=== PATIENT | male | born 1985 | race Caucasian/White ===

== ENCOUNTER 2024-09-04 10:45 | Outpatient (CLI) | payer BC, SELFPAY | END 2024-09-04 10:46 | disposition home or self-care (01) | PROVIDERS: PCP Family Medicine; Visit Provider Family Medicine | DX: I10 Essential (primary) hypertension (principal); R59.0 Localized enlarged lymph nodes | CPT/HCPCS: 80048; 80061; 82164; 85025 ==

== ENCOUNTER 2024-09-04 12:19 | Outpatient (CLI) | payer BC, SELFPAY ==
--- NOTE | 2024-09-04 13:00 | CRLHL7_ITS ---
For Patients: As a result of the Century Cures Act, medical imaging exams and procedure reports are released immediately into your electronic medical record. You may view this report before your referring provider. If you have questions, please contact your health care provider. Indication: FOLLOW UP ABNORMAL CXR Technique: CT Chest 75CC ISOVUE 370 Please note that all CT scans at this facility use dose modulation, iterative reconstruction, and/or weight-based dosing when appropriate to reduce radiation dose to as low as reasonably achievable. Comparison: Chest x-ray 08/31/2024 Findings: Visualized thyroid is unremarkable. Mediastinal and bilateral hilar adenopathy is present with lymph nodes measuring up to 2.3 cm. Trace pericardial effusion is present. Mild atherosclerotic changes within the descending thoracic aorta. No aortic dissection. Numerous accessory vascular channels in the left upper hemithorax. Adrenal glands are normal. Normal visualized kidneys. Spleen is enlarged measuring 16.3 cm. Diffuse hepatic steatosis is noted. The gallbladder is absent. No biliary obstruction. Mild fatty atrophy of the pancreas. No enlarged lymph nodes within the upper abdomen. However, there are few sub cm GE junction lymph nodes present along with a sub cm anterior epicardial lymph node. The liver is also enlarged measuring 20.8 cm. Right lower lobe pulmonary nodule measures 10 millimeters, 3/71. Additional bronchovascular pulmonary nodules are present within the right lung base involving the right middle lobe and right lower lobe measuring up to 11 millimeters. Left lower lobe pulmonary nodules are present including a 7.5 millimeter nodule left lower lobe, series 3, image 86. Other smaller nodules are present within the inferior lingula. No pneumothorax. No pulmonary edema. No pleural effusion. No vertebral body compression fracture. No suspicious osseous lesion. Impression: Bulky bilateral hilar and mediastinal adenopathy with associated hepatosplenomegaly and bilateral pulmonary nodules measuring up to 11 millimeters. Findings are suspicious for lymphoma. Sarcoidosis would also be a diagnostic consideration. CT PET and pulmonology consultation is recommended for further evaluation. Please note that all CT scans at this facility use dose modulation, iterative reconstruction, and/or weight-based dosing when appropriate to reduce radiation dose to as low as reasonably achievable. Dictated by Dallin Self MD @ 09/04/2024 1:29:20 PM (Electronically Signed)
== END 2024-09-04 12:20 | disposition home or self-care (01) ==
PROVIDERS: PCP Family Medicine; Visit Provider Family Medicine
DX: R93.89 Abnormal findings on diagnostic imaging of other specified body structures (principal); R16.2 Hepatomegaly with splenomegaly, not elsewhere classified; R91.8 Other nonspecific abnormal finding of lung field; I10 Essential (primary) hypertension; R59.0 Localized enlarged lymph nodes
CPT/HCPCS: 71260; Q9967

== ENCOUNTER 2024-09-19 13:20 | Outpatient (CLI) | payer BC, SELFPAY ==
--- OUTSIDE RECORDS SUMMARY | 2024-09-17 14:43 | XMS_ITS | Encounter Summary ---
Author Organization [facility] Address [address] [place] [address] Care Team Providers Care Internal Salesperson Name Role Phone [facility], [facility] Reason for Referral * Consultation (Routine) - Pending Review Specialty Diagnoses / Procedures Referred By Jazmin t Referred To Contact Pulmonary Disease Diagnoses Localized enlarged lymph nodes Dallin Grigsby MD [facility] [address] [place] [address] Phone: tel: fax: Referral ID Status Reason Start Date Expiration Date V isits Requested Visits Authorized [id number] Pending Review 09/07/2024 09/07/2025 1 1 Question Answer Reason for Referral: General Pulmonary My clinical question is: Hilar adenopathy Patient Scheduling Instructions: [facility] will call you to coordinate your care as prescribed by the provider. If you don t hear from a insurance claims representative within 2 business days, please call . Comments Referral Transcribed by external fax Provider: Dr Dallin Grigsby affiliated with [facility] and clinic at [address] [place] [address]. [place]: No If yes was is the [place] Authorization Number: Phone number: [phone] Please be aware that coverage of these services is subject to the terms and limitations of your health insurance plan. Call member services at your health plan with any benefit or coverage questions. [facility] will call you to coordinate your care as prescribed by the provider. If you don t hear from a insurance claims representative within 2 business days, please call . 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 Gender Identity Not on file Sexual Orientation Not on file documented as of this encounter Plan of Treatment Upcoming Encounters Date Type Department Care Team (Late st Contact Info) Description 09/22/2024 8:30 AM BUTCHER HELPER Hospital Encounter [facility] Respiratory [address] [place] [address] Darryl Johnson MD [address] [place], [place] [address] Scheduled Procedures Name Priority Associated Diagnoses Date/Ti me BRONCHOSCOPY, FLEXIBLE LAD (lymphadenopathy) Scheduled Referrals Name Type Priority Associated Diagnoses Orde r Schedule Adult Pulmonary Medicine Aircraft Skin Burnisher Referral Referral Routine Localized enlarged lymph nodes Expected: 09/07/2024 (Approximate), Expires: 09/07/2025 documented as of this encounter Visit Diagnoses Diagnosis Localized enlarged lymph nodes- Primary Enlargement of lymph nodes documented in this encounter Care Teams Internal Salesperson Relationship Specialty Start Date End Date Clinic, [facility] [place] [address] [place] [address] PCP - General 07/23/19 documented as of this encounter
--- OUTSIDE RECORDS SUMMARY | 2024-09-17 14:43 | XMS_ITS | Encounter Summary ---
Author Organization [facility] Address [address] [place] [address] Care Team Providers Care Correspondence Review Clerk Name Role Phone [facility], [facility] Darryl Johnson MD Unavailable [phone] Dallin Grigsby MD Unavailable [phone] Reason for Visit * Reason Comments Consult * Consultation (Urgent) - Pending Review Specialty Diagnoses / Procedures Referred By Jazmin moe Referred To Contact Medical Oncology Diagnoses Localized enlarged lymph nodes Dallin Grigsby MD [facility] [address] [place] [address] Phone: tel: fax: Referral ID Status Reason Start Date Expiration Date V isits Requested Visits Authorized [id number] Pending Review 09/11/2024 09/11/2025 1 1 Encounter Details Date Type Department Care Team (Late st Contact Info) Description 09/15/2024 4:40 PM TIE MAN Virtual Visit [facility] [address] [place] [address] Darryl Johnson MD [address] [place] [address] LAD (lymphadenopathy) (Primary Dx) Social History Tobacco Use Types Packs/Day Years Used Date Smoking Tobacco: Never Smokeless Tobacco: Never Tobacco Cessation:Counseling Given: Not Answered Sex and Gender Information Value Date Recorded Sex Assigned at Not on file Legal Sex Male 7:53 PM TIE MAN Gender Identity Not on file Sexual Orientation Not on file documented as of this encounter Progress Notes * Darryl Johnson MD - 09/15/2024 4:40 PM CST Images from the original note were not included. Virtual Visit Details Type of service: Video Visit See note LUNG NODULE & INTERVENTIONAL PULMONARY CLINIC [facility] [place], [facility], [facility] [address] [address] Patient: Jackson Bingham, Age [age] year old, Date of 1985, Date of Visit: 09/15/2024 Referring Provider Dallin Grigsby Reason for Consultation: Mediastinal/Hilar Lymphadenopathy The patient has been notified of following: This video visit will be conducted via a call between you and your physician/provider. We have found that certain health care needs can be provided without the need for an in-person physical exam. This service lets us provide the care you need with a video conversation. If a prescription is necessary we can send it directly to your pharmacy. If lab work is needed we can place an order for that and you can then stop by our lab to have the test done at a later time. Video visits are billed at different rates depending on your insurance coverage. Please reach out to your insurance provider with any questions. If during the course of the call the physician/provider feels a video visit is not appropriate, youwill not be charged for this service. Patient has given verbal consent for Video visit? Yes How would you like to obtain your AVS? Please refer to rooming staff note Patient would like the video invitation sent by: Please refer to rooming staff note Will anyone else be joining your video visit? Please refer to rooming staff note Video-Visit Details Type of service: Video Visit Video Start Time: 422 Video End Time: 459 Provider Name: Darryl Johnson MD, A Originating Location (pt. Location): Home Provider Location: Off campus Distant Location (provider location): Home/Clinic Platform used for Video Visit: AmWell/Doximity Assessment and Plan: 1. New multiple hilar/mediastinal LAD. Given the characteristics on current/previous imaging and risk factors; I would classify this to be Intermediate (6-65%) risk for cancer. Given hepatosplenomegaly there is concern for a lymphoproliferative process. Plan EBUS-TBNA in OR and sending flow cytometry. He will also be getting a PET scan 09/17/24 at 330 at [facility]. Billing: I spent a total of 45min spent on date of encounter which includes prep time, visit with the patient and post visit work including documentation and nursing communication Darryl Johnson MD, MHA fixture builder Section of Interventional Pulmonology Division of Pulmonary, Allergy, Critical Care and Sleep Medicine [facility] Pager: [phone] Office: [phone] Email: [email or web address] Brenda Rowe RN Interventional Pulmonary Logistics Lead Office: [phone] Email: [email or web address] Jhon Cui Interventional Pulmonary Division Sergeant Office: [phone] Email: [email or web address] History: Jackson Bingham is a 39 year old male who is here for evaluation/followup of Mediastinal/Hilar Lymphadenopathy . - No new resp sx or complaints. Denies dyspnea or cough. - Ct chest found bilateral hilar and mediastinal LAD and hepatosplenomegaly - Personal hx of cancer: no - Family hx of cancer: lung, pancreatic, melanoma, colon, stomach, breast - Exposure hx: Denies asbestos or radon exposure - Tobacco hx: Never Smoker. - My interpretation of the images relevant for this visit includes: LAD - My interpretation of the PFT's relevant for this visit includes: None Culprit Nodule(s): Bulky bilateral hilar and mediastinal LAD Hepatosplenomegaly Other active medical problems include: - NA Past Medical History: No past medical history on file. Past Surgical History: No past surgical history on file. Social History: Social History Tobacco Use Smoking status: Not on file Smokeless tobacco: Not on file Substance Use Topics Alcohol use: Not on file Family History: No family history on file. Allergies: No Known Allergies Medications: Current Outpatient Medications Medication Sig Dispense Refill benzonatate (TESSALON) 200 MG capsule Take 1 capsule (200 mg) by mouth 3 times daily as needed for cough 30 capsule 0 guaiFENesin-codeine (ROBITUSSIN AC) 100-10 MG/5ML solution Take 5-10 mLs by mouth every 4 hours as needed for cough 180 mL 0 No current facility-administered medications for this visit. Review of Systems: 12-point ROS reviewed and abnormalities stated in the history. Physical Exam: Constitutional - looks well, in no apparent distress Eyes - no redness or discharge Respiratory -breathing appears comfortable. No cough. Skin - No appreciable discoloration or lesions (very limited exam) Neurological - No apparent tremors. Speech fluent and articlate Psychiatric - no signs of delirium or anxiety Exam limited to that easily identified on a virtual visit. The rest of a comprehensive physical examination is deferred due to PHE ([facility] emergency) video visit restrictions. Current Laboratory Data: All laboratory and imaging data reviewed. No data to display MAN documented in this encounter Nursing Notes * Lenny Brown - 09/15/2024 4:40 PM CST Current patient location: [facility] [place] [address] Is the patient currently in the state of [place]? YES Visit mode:VIDEO If the visit is dropped, the patient can be reconnected by:VIDEO VISIT: Text to cell phone: Telephone Information: Will anyone else be joining the visit? NO (If patient encounters technical issues they should call [phone] :[phone]) Are changes needed to the allergy or medication list? No Are refills needed on medications prescribed by this physician? NO Rooming Documentation: Not applicable Reason for visit: Consult Lenny Brown VVF MAN documented in this encounter Plan of Treatment Upcoming Encounters Date Type Department Care Team (Late st Contact Info) Description 09/22/2024 8:30 AM TIE MAN Hospital Encounter [facility] Respiratory [address] [place] [address] Darryl Johnson MD [address] [place] [address] Scheduled Procedures Name Priority Associated Diagnoses Date/Ti me BRONCHOSCOPY, FLEXIBLE LAD (lymphadenopathy) documented as of this encounter Visit Diagnoses Diagnosis LAD (lymphadenopathy)- Primary documented in this encounter Care Teams Correspondence Review Clerk Relationship Specialty Start Date End Date Clinic, [facility] [address] [place] [address] PCP - General 07/23/19 Darryl Johnson MD [address] [place] [address] Critical Care 09/14/24 Dallin Grigsby MD [facility] [address] [address] Family Medicine 09/14/24 documented as of this encounter
--- OUTSIDE RECORDS SUMMARY | 2024-09-17 14:43 | XMS_ITS | Encounter Summary ---
Author Organization [facility] Address [address] [place] [address] Care Team Providers Care Chair Springer Name Role Phone [facility] Encounter Details Date Type Department Care Team (Late st Contact Info) Description 09/06/[address] 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 Gender Identity Not on file Sexual Orientation Not on file documented as of this encounter Plan of Treatment Upcoming Encounters Date Type Department Care Team (Late st Contact Info) Description 09/22/2024 8:30 AM SENIOR SITE MANAGER Hospital Encounter [facility] Respiratory [address] [place] [address] Darryl Johnson MD [address] [place] [address] Scheduled Procedures Name Priority Associated Diagnoses Date/Ti me BRONCHOSCOPY, FLEXIBLE LAD (lymphadenopathy) documented as of this encounter Visit Diagnoses Not on filedocumented in this encounter Care Teams Chair Springer Relationship Specialty Start Date End Date [facility] [address] [place] [address] PCP - General 07/23/19 documented as of this encounter
--- OUTSIDE RECORDS SUMMARY | 2024-09-17 14:43 | XMS_ITS | Encounter Summary ---
Author Organization [facility] Address [address] [place] [address] Care Team Providers Care Syruper Name Role Phone Clinic, [facility] [place] [facility] ov[facility] Darryl Johnson MD Unavailable [phone] Dallin Grigsby MD Unavailable [phone] Reason for Visit * Reason Onset Date Comments *-*INCOMING RECORDS*-* 09/11/2024 Localized enlarged lymph nodes [R59.0] Encounter Details Date Type Department Care Team (Late st Contact Info) Description 09/11/2024 PRE VISIT [facility] [place] [address] [place] [address] Provider, Generic External Data *-*INCOMING RECORDS*-* (Localized enlarged lymph nodes [R59.0] ) Social History Tobacco Use Types Packs/Day Years Used Date Smoking Tobacco: Never Assessed Sex and Gender Information Value Date Recorded Sex Assigned at Not on file Legal Sex Male 7:53 PM CUSTOMER ENERGY SPECIALIST Gender Identity Not on file Sexual Orientation Not on file documented as of this encounter Miscellaneous Notes * Telephone Encounter - Michelle Barrett MA - 09/11/2024 3:01 PM CST Imaging Received September 12, 2024 1:33 PM ABT Action: Images from [facility] received and resolved to PACS. RECORDS STATUS - ALL OTHER DIAGNOSIS RECORDS RECEIVED FROM: NOTES STATUS DETAILS OFFICE NOTE from referring provider Dr. Dallin Grigsby OFFICE NOTE from medical oncologist OFFICE NOTE from other specialist DISCHARGE SUMMARY from hospital DISCHARGE REPORT from the ER OPERATIVE REPORT MEDICATION LIST LABS PATHOLOGY REPORTS ANYTHING RELATED TO DIAGNOSIS PATHOLOGY [employer] TR[employer] Tracking #: GENONOMIC TESTING TYPE: IMAGING (NEED IMAGES & REPORT) CT SCANS PACS [facility]: 09/04/24: CT Chest MRI XRAYS PACS [facility]: 08/31/24: XR Chest PACS: 07/23/19: XR Chest ULTRASOUND PET Scheduled 09/17/24: [place] IMAGE DISC [employer] TRACKING Tracking #: OMER ENERGY SPECIALIST OMER ENERGY SPECIALIST OMER ENERGY SPECIALIST documented in this encounter Plan of Treatment Upcoming Encounters Date Type Department Care Team (Late st Contact Info) Description 09/22/2024 8:30 AM CUSTOMER ENERGY SPECIALIST Hospital Encounter [facility] Respiratory [address] [place] [phone] Darryl Johnson MD [address] [place] [address] Scheduled Procedures Name Priority Associated Diagnoses Date/Ti me BRONCHOSCOPY, FLEXIBLE LAD (lymphadenopathy) documented as of this encounter Visit Diagnoses Not on filedocumented in this encounter Care Teams Syruper Relationship Specialty Start Date End Date Clinic, [facility] [address] [place] [address] PCP - General 07/23/19 Darryl Johnson MD [address] [place] [address] Critical Care 09/14/24 Dallin Grigsby MD [facility] [address] [place] [address] Family Medicine 09/14/24 documented as of this encounter
--- OUTSIDE RECORDS SUMMARY | 2024-09-17 14:43 | XMS_ITS | Referral Summary ---
Author Organization [place] Address [address] [place] [address] Care Team Providers Care Slasher Name Role Phone Clinic, [facility] Pr ov[facility] Darryl Johnson MD Unavailable [phone] Dallin Grigsby MD Unavailable Encounters Date Type Department Care Team Description 09/15/2024 4:[address] JUDGE Virtual Visit [facility] [address] [address] Darryl Johnson MD LAD (lymphadenopathy) (Primary Dx) 09/11/2024 PRE VISIT [facility] [address] [address] Provider, Generic External Data *-*INCOMING RECORDS*-* (Localized enlarged lymph nodes [R59.0] ) 09/11/2024 Transcribe Orders GENERIC EXTERNAL DATA DEPARTMENT Provider, Generic External Data Localized enlarged lymph nodes (Primary Dx) 09/07/2024 Transcribe Orders GENERIC EXTERNAL DATA DEPARTMENT Provider, Generic External Data Localized enlarged lymph nodes (Primary Dx) 09/06/2024 Medical Correspondence [facility] Information Management [address] [facility] [address] [place] [address] Scan, Non-Provider from Last 3 Months Allergies No known active allergies Medications benzonatate (TESSALON) 200 MG capsule Take 1 capsule (200 mg) by mouth 3 times daily as needed for cough 30 capsule 9 Active guaiFENesin-cod eine (ROBITUSSIN AC) 100-10 MG/5ML solution Take 5-10 mLs by mouth every 4 hours as needed for cough 180 mL 9 Active Additional Information Patient not taking.Reported on 09/15/2024 lisinopril (ZESTRIL) 10 MG tablet Take 1 tablet by mouth daily at 2 pm. 4 Active albuterol (PROAIR HFA/PROVENTIL HFA/VENTOLIN HFA) 108 (90 Base) MCG/ACT inhaler INHALE 2 PUFFS EVERY 4 TO 6 HOURS NEEDED FOR SHORTNESS OF BREATH OR WHEEZING* 4 Active Social History Tobacco Use Types Packs/Day Years Used Date Smoking Tobacco: Never Smokeless Tobacco: Never Tobacco Cessation:Counseling Given: Not Answered Sex and Gender Information Value Date Recorded Sex Assigned at Not on file Legal Sex Male 7:[address] JUDGE Gender Identity Not on file Sexual Orientation Not on file Last Filed Vital Signs Vital Sign Reading Time Taken Comments Blood Pressure 139/97 07/23/2019 8:[address] JUDGE Pulse 86 07/23/2019 9:[address] JUDGE Temperature 36.9 C (98.5 F) 07/23/2019 8:[address] JUDGE Respiratory Rate 16 07/23/2019 8:[address] JUDGE Oxygen Saturation 96% 07/23/2019 9:[address] JUDGE Inhaled Oxygen Concentration - - Weight 127 kg (280 lb) 07/23/2019 8:[address] JUDGE Height 193 cm (6' 4) 07/23/2019 8:[address] JUDGE Body Mass Index 34.08 07/23/2019 8:[address] JUDGE Plan of Treatment Upcoming Encounters Date Type Department Care Team (Late st Contact Info) Description 09/22/2024 8:[address] JUDGE Hospital Encounter [facility] Respiratory [address] [place] [address] Darryl Johnson MD [address] [place] [address] Scheduled Procedures Name Priority Associated Diagnoses Date/Ti me BRONCHOSCOPY, FLEXIBLE LAD (lymphadenopathy) Procedures Procedure Name Priority Date/Time Associated Diagnosis Comments LAB RESULT - HIM SCAN 09/04/2024 12:[address] IMAGING - HIM SCAN 09/04/2024 12:[address] JUDGE XRAY IMAGING - HIM SCAN 08/31/2024 12:[address] JUDGE BASIC METABOLIC PANEL STAT 07/23/2019 8:[address] JUDGE from Last 3 Months or Most Recently Relevant to Health Maintenance Results * Lab Result - HIM Scan (09/04/2024 12:[address] JUDGE) 09/04/2024 us Provider Outside NON-BEAKER LAB TESTING Final Result * CT Imaging - HIM Scan (09/04/2024 12:[address] JUDGE) Anatomical Region Laterality Modality Computed Tomogra phy 09/04/2024 us Provider Outside [facility] CT ORDERABLES Final Result * Xray Imaging - HIM Scan (08/31/2024 12:[address] JUDGE) Anatomical Region Laterality Modality Other 08/31/2024 us Provider Outside [facility] DIAGNOSTIC IMAGING ORDERABL ES Final Result * (ABNORMAL) Basic metabolic panel (07/23/2019 8:[address] JUDGE) Sodium 135 133 - 144 mmol/L 07/23/2019 9:05 PM [facility] Potassium 4.0 3.4 - 5.3 mmol/L 07/23/2019 9:05 PM [facility] Chloride 103 94 - 109 mmol/L 07/23/2019 9:05 PM [facility] Carbon Dioxide 27 20 - 32 mmol/L 07/23/2019 9:10 PM [facility] Anion Gap 5 3 - 14 mmol/L 07/23/2019 9:10 PM [facility] Glucose 156(H) 70 - 99 mg/dL 07/23/2019 9:10 PM [facility] Urea Nitrogen 11 7 - 30 mg/dL 07/23/2019 9:10 PM [facility] Creatinine 1.06 0.66 - 1.25 mg/dL 07/23/2019 9:[address] JUDGE [facility] GFR Estimate >90 >60 mL/min/{1. 73_m2} 07/23/2019 9:10 PM [facility] Comment: Non GFR Calc Starting 09/02/2018, serum creatinine based estimated GFR (eGFR) will be calculated using the Chronic Kidney Disease Epidemiology Collaboration (CKD-EPI) equation. GFR Estimate If Black >90 >60 mL/min/{1. 73_m2} 07/23/2019 9:[address] JUDGE [facility] Comment: GFR Calc Starting 09/02/2018, serum creatinine based estimated GFR (eGFR) will be calculated using the Chronic Kidney Disease Epidemiology Collaboration (CKD-EPI) equation. Calcium 9.5 8.5 - 10.1 mg/dL 07/23/2019 9:10 PM [facility] Blood specimen (specimen) 07/23/2019 8:[address] JUDGE 07/23/2019 8:[address] JUDGE us Pearl Dutta MD LAB - BLOOD ORDERABLES Fin al Result [facility] [address] [place] [address], [facility] [phone] [facility] [address] [place] [address], [facility] [phone] from Last 3 Months or Most Recently Relevant to Health Maintenance Insurance BCBS OUT OF STATE BCBS OUT OF STATE Care Teams Slasher Relationship Specialty Start Date End Date Clinic, [facility] [address] [place] [address] PCP - General 07/23/19 Darryl Johnson MD [address] [place] [address] Critical Care 09/14/24 Dallin Grigsby MD [facility] [address] [place] [address] Family Medicine 09/14/24
--- OUTSIDE RECORDS SUMMARY | 2024-09-17 14:43 | XMS_ITS | Encounter Summary ---
Author Organization [place] Address [address] [place] [address] Care Team Providers Care Vendor Manager Name Role Phone Clinic, [facility] Pr ov[facility] Reason for Referral * Consultation (Urgent) - Pending Review Specialty Diagnoses / Procedures Referred By Jazmin moe Referred To Contact Medical Oncology Diagnoses Localized enlarged lymph nodes Dallin Grigsby MD [facility] [address], [place] [address] Phone: tel: fax: Referral ID Status Reason Start Date Expiration Date V isits Requested Visits Authorized [id number] Pending Review 09/11/2024 09/11/2025 1 1 Question Answer My Clinical Question Is: Localized enlarged lymph nodes. If you have additional clinical questions which require a provider discussion, please call [phone]. Ask for the Chemo only medicine physician. Reason for Referral: Interventional Pulmonary (Lung nodule) Patient Scheduling Instructions: [facility] will call you to coordinate your care as prescribed by the provider. If you don t hear from a district representative within 2 business days, please call Additional Information: Localized enlarged lymph nodes. Refer by Dr Dallin Grigsby affiliated with [facility] Comments IB msg:-Localized enlarged lymph nodes. Refer by Dr Dallin Grigsby affiliated with [facility]. Original referral to gen pulm but determined should be IP [facility] will call you to coordinate your care as prescribed by the provider. If you don t hear from a district representative within 2 business days, please call RAL CONTROL ROOM OPERATOR Encounter Details Date Type Department Care Team (Late st Contact Info) Description 09/11/2024 Transcribe Orders GENERIC EXTERNAL DATA DEPARTMENT Provider, Generic External Data Localized enlarged lymph nodes (Primary Dx) Social History Tobacco Use Types Packs/Day Years Used Date Smoking Tobacco: Never Assessed Sex and Gender Information Value Date Recorded Sex Assigned at Not on file Legal Sex Male 7:53 PM CENTRAL CONTROL ROOM OPERATOR Gender Identity Not on file Sexual Orientation Not on file documented as of this encounter Plan of Treatment Upcoming Encounters Date Type Department Care Team (Late st Contact Info) Description 09/22/2024 8:30 AM CENTRAL CONTROL ROOM OPERATOR Hospital Encounter [facility] Respiratory [address] [place] [phone] Darryl Johnson MD [address] [place] [phone] Scheduled Procedures Name Priority Associated Diagnoses Date/Ti me BRONCHOSCOPY, FLEXIBLE LAD (lymphadenopathy) Scheduled Referrals Name Type Priority Associated Diagnoses Orde r Schedule Adult Oncology/Hematology Accounts Payable Associate Referral Referral Routine Localized enlarged lymph nodes Ordered: 09/11/2024 documented as of this encounter Visit Diagnoses Diagnosis Localized enlarged lymph nodes- Primary Enlargement of lymph nodes documented in this encounter Care Teams Vendor Manager Relationship Specialty Start Date End Date Clinic, [facility] [place] [place] [address] [place], [place] [phone] PCP - General 07/23/19 documented as of this encounter
--- OUTSIDE RECORDS SUMMARY | 2024-09-17 14:43 | XMS_ITS | Clinical Summary ---
Author Organization [facility] Address [address] [place] [address] Care Team Providers Care Heavy Equipment Supervisor Name Role Phone Carol Martínez Primary Care Provider [phone] Source Comments You are receiving this document as you are listed as the primary care provider,follow-up provider, or the patient has been referred to you for consultation.This is in compliance with the Medicare and[facility] Hospital[facility] EHR Incentive Program,which states Providers who transition their patient to another setting of careor provider of care or refers their patient to another provider of care shouldprovide summary care record for each transition of care or referral. [facility] Allergies No known active allergies Medications Medication Sig Dispensed Refills Start Date End Date Status ofloxacin (OCUFLOX) 0.3 % eye drop solution 01/13/2020 Active Active Problems Problem Noted Date Diagnosed Date Left-sided low back pain without sciatica 2014 Immunizations Name Administration Dates Next Due Flu Vac Preserv Free (3+yrs) 06/30/2011 Influenza IIV4 (Quadrivalent) 0.5mL (95727) 07/17,08/03/2015 MMR 01/06/1999 Td 01/06/1999 Tdap 03/16/2010 Family History Medical History Relation Name Comments Diabetes Maternal Grandmother Heart Disease Maternal Grandmother Relation Name Status Comments Father Alive Mother Alive Maternal Grandmother Social History Tobacco Use Types Packs/Day Years Used Date Smoking Tobacco: Never Smokeless Tobacco: Never Alcohol Use Standard Drinks/Week Comments No 0 (1 standard drink = 0.6 oz pur e alcohol) PHQ-2 Answer Date Recorded PHQ-2 Score 0 07/27/2019 Sex and Gender Information Value Date Recorded Sex Assigned at Not on file Gender Identity Not on file Sexual Orientation Not on file Last Filed Vital Signs Vital Sign Reading Time Taken Comments Blood Pressure 142/109 10/13/2021 8:04 AM REVENUE RESEARCH ANALYST Pulse 84 10/13/2021 8:04 AM REVENUE RESEARCH ANALYST Temperature 36.7 C (98 F) 10/13/2021 8:04 AM REVENUE RESEARCH ANALYST Respiratory Rate 20 10/13/2021 8:04 AM REVENUE RESEARCH ANALYST Oxygen Saturation 99% 10/13/2021 8:04 AM REVENUE RESEARCH ANALYST Inhaled Oxygen Concentration - - Weight 143.3 kg (316 lb) 10/07/2019 1:47 PM REVENUE RESEARCH ANALYST Height 192 cm (6' 3.59) 05/09/2017 7:20 AM CDT Body Mass Index 38.88 05/09/2017 7:20 AM CDT Plan of Treatment Health Maintenance Due Date Last Done Comments Adult Preventive Visit 01/29/2004 HepB (1) 2005 DTaP/Tdap/Td (3 - Tdap) 03/16/2020 03/16/20 10, 01/06/1999 Cholesterol 2021 COVID-19 Vaccine (3 - 2023-2 5 season) 2024 02/23/2021, 02/02/2021 Influenza (#1) 2024 07/29/2018, 08/03/2015, 06/30/2011 Zoster/Shingles (1 of 2) 01/29/2036 HIV Screening (Preventive Services) Completed 01/30/2016 Hep C Screening (Preventive Services) Completed 01/30/2016 HPV Vaccine Aged Out No longer eligi ble based on patient's age to complete this topic HepA Aged Out No longer eligi ble based on patient's age to complete this topic Hib Aged Out No longer eligi ble based on patient's age to complete this topic IPV (Polio) Aged Out No longer eligi ble based on patient's age to complete this topic MCV4 Aged Out No longer eligi ble based on patient's age to complete this topic Pneumococcal Aged Out No longer eligi ble based on patient's age to complete this topic Medical Devices Implanted Type Area Ceo And Founder Device Identifier Shelf Expiration Date Model / Serial / Lot Tiss Canc Chips 5cc 1-4mm - [id number] Implanted:Qty: 1 on 05/09/2017 by Gerard Parisi DPM at [employer] Left: [employer] 11/13/2019 [id number] / [id number] / [id number] Procedures Procedure Name Priority Date/Time Associated Diagnosis Comments HIV-1 P24 AND HIV-1/HIV-2 ANTIBODIES Routine 01/30/2016 2:09 PM CDT Routine screening for STI (sexually transmitted infection) HEPATITIS C ANTIBODY, WITH REFLEX Routine 01/30/2016 2:09 PM CDT Routine screening for STI (sexually transmitted infection) from Last 3 Months or Most Recently Relevant to Health Maintenance Results * HIV-1 P24 AND HIV-1/HIV-2 ANTIBODIES (01/30/2016 2:09 PM CDT) HIV-1 p24 Ag and HIV-1/HIV-2 Ab Nonreactive Non-React natty HP CONVERSION 01/30/2016 2:09 PM CDT 01/30/2016 4:34 PM CDT Narrative HP CONVERSION - 01/30/2016 6:02 [place] [address] CLIA number [id number] Rima Le APRN, CNP LAB_1 Performing Organization Address [facility] de Phone Number HP CONVERSION * Hepatitis C Antibody, with Reflex (01/30/2016 2:09 PM CDT) Hepatitis C Antibody Nonreactive Non-React natty HP CONVERSION 01/30/2016 2:09 PM CDT 01/30/2016 4:34 PM CDT Narrative HP CONVERSION - 01/30/2016 6:02 PM CDT Performed at [address] [address] CLIA number [id number] Rima Le APRN, CNP LAB_1 Performing Organization Address [facility] Co de Phone Number HP CONVERSION from Last 3 Months or Most Recently Relevant to Health Maintenance Advance Directives * Full Code (Latest Code Status on File) Date Activated Date Inactivated Comments 05/09/2017 8:33 AM 05/09/2017 4:13 PM Care Teams Heavy Equipment Supervisor Relationship Specialty Start Date End Date Carol Martínez DO [address] [place] [address] PCP - General Family Practice 02/27/19
--- OUTSIDE RECORDS SUMMARY | 2024-09-17 14:43 | XMS_ITS | Clinical Summary ---
Author Organization [facility] Address [place], [place] [address] Care Team Providers Care Packaging Sales Representative Name Role Phone Clinic, No Pcp Or Primary Care Provider Unavaila ble Allergies No known active allergies Medications ibuprofen (ADVIL; MOTRIN) 600 mg tabletIndication s:Sprain of foot, unspecified site Take 1 tablet by mouth 3 times daily with meals. Maximum of 3200 mg in 24 hours. 60 tablet 0 01/07/2012 Active Active Problems Problem Noted Date Diagnosed Date Esophageal reflux 04/01/2010 Adjustment disorder with mixed anxiety and depre ssed mood 06/29/2007 Encounters Date Type Department Care Team Description 09/07/2024 Transcribe Orders [facility] [employer] [facility] [place] [address] [place] [address] Dallin Grigsby MD from Last 3 Months Family History Medical History Relation Name Comments Good Health Father Good Health Mother Relation Name Status Comments Brother Alive Father Alive Maternal Grandfather Alive Maternal Grandmother Alive Mother Alive Paternal Grandfather Alive Paternal Grandmother Alive Social History Tobacco Use Types Packs/Day Years Used Date Smoking Tobacco: Passive Smo ke Exposure - Never Smoker Smokeless Tobacco: Never Comments:home exposer Alcohol Use Standard Drinks/Week Comments Yes 0 (1 standard drink = 0.6 oz pur e alcohol) very little Sex and Gender Information Value Date Recorded Sex Assigned at Not on file Legal Sex Male 5:27 AM CUSTOMER SUCCESS ADVOCATE Gender Identity Not on file Sexual Orientation Not on file Obstetrics History Last Filed Vital Signs Vital Sign Reading Time Taken Comments Blood Pressure 138/77 08/26/2021 1:55 PM CUSTOMER SUCCESS ADVOCATE Pulse 108 08/26/2021 1:55 PM CUSTOMER SUCCESS ADVOCATE Temperature 36.3 C (97.3 F) 08/26/2021 1:55 PM CUSTOMER SUCCESS ADVOCATE Respiratory Rate 16 08/26/2021 1:55 PM CUSTOMER SUCCESS ADVOCATE Oxygen Saturation 97% 08/26/2021 1:55 PM CUSTOMER SUCCESS ADVOCATE Inhaled Oxygen Concentration - - Weight 140.6 kg (310 lb) 08/26/2021 1:55 PM CUSTOMER SUCCESS ADVOCATE Height 193 cm (6' 4) 08/26/2021 1:55 PM CUSTOMER SUCCESS ADVOCATE Body Mass Index 37.73 08/26/2021 1:55 PM CUSTOMER SUCCESS ADVOCATE Plan of Treatment Health Maintenance Due Date Last Done Comments Tdap 1997 Depression screening for age 12+ 1998 Tetanus booster 2006 BMI (ht and wt on same day) for age 18+ 05/25/2018 05/25/2017 Lipids for age 35-44 2021 COVID-19 vaccine series (2023- season) 2024 Influenza for age 9-49 05/17/2024 HIV for age 15-65 Completed 06/28/2009 Hepatitis C screening for ag e 18-79 Completed 06/28/2009 Pneumococcal series for age 6-49 Aged Out No longer eligible based on patient's age to complete this topic Procedures Procedure Name Priority Date/Time Associated Diagnosis Comments ANTI HIV 1/2 Routine 06/28/2009 9:06 AM CDT Screening for STDs (Sexually Transmitted Diseases) ANTI HCV Routine 06/28/2009 9:06 AM CDT Screening for STDs (Sexually Transmitted Diseases) from Last 3 Months or Most Recently Relevant to Health Maintenance Results * ANTI HCV (06/28/2009 9:06 AM CDT) ANTI HCV Non-reacti ve [facility] Blood specimen (specimen) BLOOD SPECIMEN / Unknown 06/28/2009 9:06 AM CDT 06/28/2009 8:59 AM CDT us Piedad Brewster NP SEND OUTS Final Result [facility] [place] ZIP [id number] [address] * ANTI HIV 1/2 (06/28/2009 9:06 AM CDT) ANTI HIV 1/2 Non-reacti ve [facility] Blood specimen (specimen) BLOOD SPECIMEN / Unknown 06/28/2009 9:06 AM CDT 06/28/2009 8:59 AM CDT us Piedad Brewster NP SEND OUTS Final Result [facility] [place]IP [phone] [address] from Last 3 Months or Most Recently Relevant to Health Maintenance Insurance [employer] [facility] [employer] [facility] Care Teams Packaging Sales Representative Relationship Specialty Start Date End Date Clinic, No Pcp Or . PCP - General 10/20/18
--- OUTSIDE RECORDS SUMMARY | 2024-09-17 14:43 | XMS_ITS | Clinical Summary ---
Author Organization [facility] Address [address] [place] [address] Care Team Providers Care Courtesy Booth Cashier Name Role Phone [facility], [facility] [place] Pr ovider Darryl Johnson MD Unavailable [phone] Daliln Grigsby MD Unavailable [phone] Allergies No known active allergies Medications benzonatate [...] SHORTNESS OF BREATH OR WHEEZING* 4 Active Encounters Date Type Department Care Team Description 09/15/2024 4:40 PM PATIENT CLERICAL ASSISTANT Virtual Visit [facility] [address] [address] Darryl Johnson MD LAD (lymphadenopathy) (Primary Dx) 09/11/2024 PRE VISIT [facility] [address] [address] Provider, Generic External Data *-*INCOMING RECORDS*-* (Localized enlarged lymph nodes [R59.0] ) 09/11/2024 Transcribe Orders GENERIC EXTERNAL DATA DEPARTMENT Provider, Generic External Data Localized enlarged lymph nodes (Primary Dx) 09/07/2024 Transcribe Orders GENERIC EXTERNAL DATA DEPARTMENT Provider, Generic External Data Localized enlarged lymph nodes (Primary Dx) 09/06/2024 Medical Correspondence [facility] Information Management [address] [facility] [address] [facility] [address] [place] [address] Scan, Non-Provider from Last 3 Months Social History Tobacco Use Types Packs/Day Years Used Date Smoking Tobacco: Never Smokeless Tobacco: Never Tobacco Cessation:Counseling Given: Not Answered Sex and Gender Information Value Date Recorded Sex Assigned at Not on file Legal Sex Male 7:53 PM PATIENT CLERICAL ASSISTANT Gender Identity Not on file Sexual Orientation Not on file Last Filed Vital Signs Vital Sign Reading Time Taken Comments Blood Pressure 139/97 07/23/2019 8:07 PM PATIENT CLERICAL ASSISTANT Pulse 86 07/23/2019 9:00 PM PATIENT CLERICAL ASSISTANT Temperature 36.9 C (98.5 F) 07/23/2019 8:07 PM PATIENT CLERICAL ASSISTANT Respiratory Rate 16 07/23/2019 8:07 PM PATIENT CLERICAL ASSISTANT Oxygen Saturation 96% 07/23/2019 9:00 PM PATIENT CLERICAL ASSISTANT Inhaled Oxygen Concentration - - Weight 127 kg (280 lb) 07/23/2019 8:07 PM PATIENT CLERICAL ASSISTANT Height 193 cm (6' 4) 07/23/2019 8:07 PM PATIENT CLERICAL ASSISTANT Body Mass Index 34.08 07/23/2019 8:07 PM PATIENT CLERICAL ASSISTANT Plan of Treatment Upcoming Encounters Date Type Department Care Team (Late st Contact Info) Description 09/22/2024 8:30 AM PATIENT CLERICAL ASSISTANT Hospital Encounter [facility] [address] [place] [address] Darryl Johnson MD [address] [place] [address] Scheduled Procedures Name Priority Associated Diagnoses Date/Ti me BRONCHOSCOPY, FLEXIBLE LAD (lymphadenopathy) Health Maintenance Due Date Last Done Comments ADVANCE CARE PLANNING 1985 ANNUAL REVIEW OF HM ORDERS 1985 YEARLY PREVENTIVE VISIT 1989 HIV SCREENING 2001 HEPATITIS C SCREENING 01/29/2004 06/28/2009 HEPATITIS B IMMUNIZATION (1 of 3 - 19+ 3-dose series) 2005 DTAP/TDAP/TD IMMUNIZATION (3 - Td or Tdap) 03/16/2020 03/16/2010, 01/06/1999 GLUCOSE 07/23/2022 07/23/2019 COVID-19 Vaccine (3 - 2023-2 5 season) 2024 02/23/2021, 02/02/2021 INFLUENZA VACCINE (#1) 2024 8, 08/03/2015, 06/30/2011 PHQ-2 (once per calendar year) 2024 RSV VACCINE (1 - 1-dose 75+ series) 2061 HPV IMMUNIZATION Aged Out No longer e ligible based on patient's age to complete this topic MENINGITIS IMMUNIZATION Aged Out No l onger eligible based on patient's age to complete this topic Pneumococcal Vaccine: Pediatrics (0 to 5 Years) and At-Risk Patients (6 to 49 Years) Aged Out No longer eligible b ased on patient's age to complete this topic RSV MONOCLONAL ANTIBODY Aged Out No l onger eligible based on patient's age to complete this topic Procedures Procedure Name Priority Date/Time Associated Diagnosis Comments LAB RESULT - HIM SCAN 09/04/2024 12:[address] CT IMAGING - HIM SCAN 09/04/2024 12:00 AM PATIENT CLERICAL ASSISTANT XRAY IMAGING - HIM SCAN 08/31/2024 12:00 AM PATIENT CLERICAL ASSISTANT BASIC METABOLIC PANEL STAT 07/23/2019 8:41 PM PATIENT CLERICAL ASSISTANT from Last 3 Months or Most Recently Relevant to Health Maintenance Results * Lab Result - HIM Scan (09/04/2024 12:00 AM PATIENT CLERICAL ASSISTANT) 09/04/2024 us Provider Outside NON-BEAKER LAB TESTING Final Result * CT Imaging - HIM Scan (09/04/2024 12:00 AM PATIENT CLERICAL ASSISTANT) Anatomical Region Laterality Modality Computed Tomogra phy 09/04/2024 us Provider Outside IMG CT ORDERABLES Final Result * Xray Imaging - HIM Scan (08/31/2024 12:00 AM PATIENT CLERICAL ASSISTANT) Anatomical Region Laterality Modality Other 08/31/2024 us Provider Outside IM DIAGNOSTIC IMAGING ORDERABL ES Final Result * (ABNORMAL) Basic metabolic panel (07/23/2019 8:41 PM PATIENT CLERICAL ASSISTANT) Sodium 135 133 - 144 mmol/L 07/23/2019 9:05 PM [facility] Potassium 4.0 3.4 - 5.3 mmol/L 07/23/2019 9:05 PM [facility] Chloride 103 94 - 109 mmol/L 07/23/2019 9:05 PM [facility] Carbon Dioxide 27 20 - 32 mmol/L 07/23/2019 9:10 PM [facility] Anion Gap 5 3 - 14 mmol/L 07/23/2019 9:10 PM [facility] Glucose 156(H) 70 - 99 mg/dL 07/23/2019 9:10 PM [facility] Urea Nitrogen 11 7 - 30 mg/dL 07/23/2019 9:10 PM [facility] Creatinine 1.06 0.66 - 1.25 mg/dL 07/23/2019 9:10 PM [facility] GFR Estimate >90 >60 mL/min/{1. 73_m2} 07/23/2019 9:10 PM [facility] Comment: Non GFR Calc Starting 09/02/2018, serum creatinine based estimated GFR (eGFR) will be calculated using the Chronic Kidney Disease Epidemiology Collaboration (CKD-EPI) equation. GFR Estimate If Black >90 >60 mL/min/{1. 73_m2} 07/23/2019 9:10 PM [facility] Comment: GFR Calc Starting 09/02/2018, serum creatinine based estimated GFR (eGFR) will be calculated using the Chronic Kidney Disease Epidemiology Collaboration (CKD-EPI) equation. Calcium 9.5 8.5 - 10.1 mg/dL 07/23/2019 9:10 PM PATIENT CLERICAL ASSISTANT [facility] Blood specimen (specimen) 07/23/2019 8:41 PM PATIENT CLERICAL ASSISTANT 07/23/2019 8:46 PM PATIENT CLERICAL ASSISTANT us Pearl Dutta MD LAB - BLOOD ORDERABLES Fin al Result [facility] [address] [place] [address], [facility] [phone] [facility] [address] [place] [address], [facility] [phone] from Last 3 Months or Most Recently Relevant to Health Maintenance Insurance BCBS OUT OF STATE BCBS OUT OF STATE Care Teams Courtesy Booth Cashier Relationship Specialty Start Date End Date Clinic, Dori Walker [address] [facility] [place] [address] PCP - General 07/23/19 Darryl Johnson MD [address] [place] [address] Critical Care 09/14/24 Dallin Grigsby MD [facility] [address] [place] [address] Family Medicine 09/14/24
--- OUTSIDE RECORDS SUMMARY | 2024-09-17 14:43 | XMS_ITS | Encounter Summary ---
Author Organization [facility] Address [address] [place] [address] Care Team Providers Care Forest Fire Fighter Name Role Phone Carol Martínez DO Primary Care Provider [phone] Encounter Details Date Type Department Care Team (Late st Contact Info) Description 07/01/2014 Telephone [facility] [place] [address] [place] [address] Magdalena Moulton V, ZOHREH Social History Tobacco Use Types Packs/Day Years Used Date Smoking Tobacco: Never Smokeless Tobacco: Never Alcohol Use Standard Drinks/Week Comments No 0 (1 standard drink = 0.6 oz pur e alcohol) Sex and Gender Information Value Date Recorded Sex Assigned at Not on file Gender Identity Not on file Sexual Orientation Not on file documented as of this encounter Plan of Treatment Not on file documented as of this encounter Visit Diagnoses Not on filedocumented in this encounter Care Teams Forest Fire Fighter Relationship Specialty Start Date End Date Carol Martínez DO [address] [place] [address] PCP - General Family Practice 02/27/19 documented as of this encounter
--- NOTE | 2024-09-19 14:00 | PE_ITS ---
[facility] [address] [facility] [address] Phone:?[phone] Fax:?[phone] Referring Physician Information: Dallin Grigsby M.D. [address] [facility] [address] Phone:?[phone] Fax:?[phone] Patient:Shira Bingham D.O.B:?1985 Sex:?Male Phone:?[phone] [facility] MRN:?[id number] Exam Date:?09/19/2024 EXAM: PET/CT SCAN MID-ORBITS TO PROXIMAL THIGHS CLINICAL INFORMATION: Lung mass; likely lymphoma. TECHNICAL INFORMATION: Spiral acquisition of data was obtained from the mid orbits to the proximal thighs with reconstruction of 3.75 mm thick images at 3.[address] data was used for attenuation correction. PET scanning was performed through the same anatomic range 54 minutes following administration of 11.6 mCi of 18-FDG delivered intravenously. The patient's glucose at the time of the injection was 85 mg/dL. PET, CT and PET/CT fusion images are interpreted using a computer viewing workstation. SUV max liver 2.66, mean 2.77; BMI normalization method. INTERPRETATION: Head and Neck: Physiologic intracranial uptake. No pathologic adenopathy or abnormal radiotracer uptake. Chest: Numerous right paratracheal, prevascular, bilateral hilar, subcarinal and distal paraesophageal enlarged FDG avid lymph nodes, right paratracheal node measuring 18 mm short axis diameter image 88, SUV max 45.27, Deauville score 5. Findings consistent with lymphoma Abdomen, Pelvis and Proximal Thighs: 6 mm node adjacent to head of pancreas, SUV max 5.99 image 158. Additional 5 mm left internal iliac node image 257, SUV max 10.84 CONCLUSION: 1. Extensive hilar, mediastinal lymphadenopathy, SUV max 45.27, Deauville score 5. A few additional small FDG avid peripancreatic and left internal iliac nodes. Findings consistent with lymphoma. Electronically signed on 09/21/2024 10:32:00 AM by Gerard Coughlin M.D.
== END 2024-09-19 13:21 | disposition home or self-care (01) ==
LOC: RAD 13:23
PROVIDERS: PCP Family Medicine; Visit Provider Family Medicine
DX: R59.0 Localized enlarged lymph nodes (principal)
CPT/HCPCS: 78815; A9552

== ENCOUNTER 2024-10-26 17:17 | Outpatient (CLI) | payer BC, SELFPAY ==
--- NOTE | 2024-11-03 12:43 | W.PM.SLEEP ---
Sleep Study Details Details Interpreting Provider: Aury Date of Sleep Study: 10/26/24 Sleep Study Details: STUDY TYPE:? Home unattended ? BMI:? 39.8 ORDERING PROVIDER:Yessi Jeffers INDICATION:? Concerns for sleep apnea ? SLEEP SUMMARY:? 493 minutes monitored RESPIRATORY SUMMARY:? AHI 27.5 Low oxygen 86 3.7% of study oxygen less than 90% Snoring 96.2% PERIODIC LIMB MOVEMENTS OF SLEEP:? Not recorded CARDIAC:? Range 43-114, mean 62.6 IMPRESSION:? Moderate obstructive sleep apnea with both Michael in tachycardia noted RECOMMENDATION: Further cardiac evaluation may be indicated. Weight loss is indicated. Treatment for sleep apnea would most likely consist of CPAP or bilevel PAP therapy.
== END 2024-10-26 17:18 | disposition home or self-care (01) ==
LOC: SLEEP 17:18
PROVIDERS: PCP Family Medicine; Visit Provider Otolaryngology
DX: G47.33 Obstructive sleep apnea (adult) (pediatric) (principal); R00.0 Tachycardia, unspecified
CPT/HCPCS: 95806

== ENCOUNTER 2024-11-30 07:53 | Outpatient (CLI) | payer BC, SELFPAY ==
--- NOTE | 2024-11-30 08:00 | CRLHL7_ITS ---
For Patients: As a result of the Century Cures Act, medical imaging exams and procedure reports are released immediately into your electronic medical record. You may view this report before your referring provider. If you have questions, please contact your health care provider. Indication: CHRONIC SINUSITIS, RT SIDE BREATHING PROBLEMS Technique: Performed without IV contrast Comparison: CT PET 09/19/2024 Findings: Frontal sinuses: Clear. Ethmoid sinuses: Clear. Maxillary sinuses: 1 cm mucous retention cyst right maxillary sinus. Mild mucosal thickening left maxillary sinus. The maxillary sinus drainage pathways are patent on both sides. Sphenoid sinuses: Clear, including both sphenoethmoidal recesses. Nasal Cavity: Mild rightward curvature of the nasal septum noted. Paradoxical middle turbinates noted with associated imtiaz bullosa. No nasal polyps. No TMJ abnormalities identified. The visualized portions of the orbits, intracranial contents and upper soft tissue neck are grossly negative. Impression: 1. Mild bilateral maxillary sinus disease. 2. Paradoxical middle turbinates with imtiaz bullosa. Rightward curvature nasal septum. Please note that all CT scans at this facility use dose modulation, iterative reconstruction, and/or weight-based dosing when appropriate to reduce radiation dose to as low as reasonably achievable. Dictated by Dallin Self MD @ 11/30/2024 9:50:08 AM (Electronically Signed)
== END 2024-11-30 07:54 | disposition home or self-care (01) ==
LOC: CT 07:53
PROVIDERS: PCP Family Medicine; Visit Provider Otolaryngology
DX: J32.9 Chronic sinusitis, unspecified (principal); J32.0 Chronic maxillary sinusitis; J34.2 Deviated nasal septum
CPT/HCPCS: 70486

== ENCOUNTER 2024-12-21 14:01 | Outpatient (CLI) | payer BC, SELFPAY | END 2024-12-21 14:02 | disposition home or self-care (01) | PROVIDERS: PCP Family Medicine; Visit Provider Family Medicine | DX: I10 Essential (primary) hypertension (principal); E55.9 Vitamin D deficiency, unspecified; R53.83 Other fatigue | CPT/HCPCS: 80048; 82306; 85025 ==

== ENCOUNTER 2025-01-15 09:43 | Day surgery (SDC) | payer BC, SELFPAY ==
[2025-01-15] VITALS (21 sets, daily range): BP systolic 140–181; BP diastolic 86–106; PULSE 64–101; RESP 12–20; TEMP 36.1–37.1; O2SAT 89–97; BMI 41.0
[2025-01-15] MEDS: LACTATED RINGERS 1000 ML 1,000 ML 100 ML IV (09:50)
[2025-01-15] MEDS: OXYMETAZOLINE 0.05% NASAL SPRAY 2 SPRAY NOSTRIL-B (10:03)
--- NOTE | 2025-01-15 10:21 | P.ANES_ITS ---
Anesthesia Charges Start Date/Time Anesthesia Start Date: 01/15/25 Anesthesia Start Time: 10:37 Stop Date/Time Anesthesia Stop Date: 01/15/25 Anesthesia Stop Time: 11:25 Coding CPT Codes CPT Codes: ANESTH NOSE/SINUS SURGERY - 68480 ([id number]) P3 - PATIENT W/SEVERE SYS DISEASE, QK - POLICE OFFICER CRIME PREVENTION 2-4 CNCRNT ANES PROC, QX - PRESS OFFICER SVC W/ MD MED DIRECTION
--- NOTE | 2025-01-15 10:21 | W.ANESCHARGE ---
Anesthesia Charges Start Date/Time Anesthesia Start Date: 01/15/25 Anesthesia Start Time: 10:37 Stop Date/Time Anesthesia Stop Date: 01/15/25 Anesthesia Stop Time: 11:25 Coding CPT Codes CPT Codes: ANESTH NOSE/SINUS SURGERY - 32863 ([id number]) P3 - PATIENT W/SEVERE SYS DISEASE, QK - SIDE TRIMMER 2-4 CNCRNT ANES PROC, QX - MINERAL SURVEYING TECHNICIAN SVC W/ MD MED DIRECTION
[2025-01-15] MEDS: SODIUM CHLORIDE 0.9 % (FLUSH) 10 ML SYRINGE IVF ×3 (10:26→23:02)
[2025-01-15] MEDS: MUPIROCIN 1 GM PACKET 1 APPLIC TOPICAL (10:53)
[2025-01-15] MEDS: AYR SALINE NASAL GEL 1 APPLIC NOSTRIL-B (10:55)
[2025-01-15] MEDS: COCAINE HCL 4 % 4 ML SOLUTION NOSTRIL-B (10:55)
[2025-01-15] MEDS: BUPIVACAINE 0.5%/EPINEPHRINE 0.9 MG (30.9 ML) INJECTION (11:11)
--- NOTE | 2025-01-15 11:24 | P.ENTPROC_ITS ---
Procedure Note Date of procedure: 01/15/25 Procedure: Preop diagnosis nasal septal deviation, nasal obstruction, bilateral inferior turbinate hypertrophy Postoperative diagnosis same Procedure nasal septoplasty, submucous partial resection inferior turbinates bilateral Under general trach anesthesia patient was prepped and draped in usual fashion and the nose decongested and injected. A right hemitransfixion incision was made in the left anterior tunnel created. A vertical incision was made through the cartilage and a right posterior tunnel created in addition to a left posterior tunnel. The posterior deflected portions of septal bone resected and a single large piece trimmed returned the posterior intraseptal space. The anterior septum was then moved to midline. There is a left premaxillary wing deformity was mainly cartilaginous that was resected. The bony portion was infractured. There is a normal amount of cartilage for dorsal and tip support. The hemitransfixion was closed with 2 4-0 chromic sutures. A stab incision was made in the anterior of the right inferior turbinate a tunnel created the Bradford dissector. The imtiaz bone was outfractured a very conservative anterior submucous resection performed. The Coblation was used to cauterize intramurally along the inferior 10% anterior head. This was repeated on the left side in identical fashion. Silastic stents were secured with 3-0 nylon and Merocel packing placed above the stents. Nasal airways were plate were trimmed and then placed bilaterally. The patient procedure well was taken recovery in satisfactory condition. Blood loss was approximately 100 mL. Surgeon: Darrius Jeffers MD
--- NOTE | 2025-01-15 11:29 | P.ANES_ITS ---
Anesthesia Charges Start Date/Time Anesthesia Start Date: 01/15/25 Anesthesia Start Time: 10:37 Stop Date/Time Anesthesia Stop Date: 01/15/25 Anesthesia Stop Time: 11:25 Coding CPT Codes CPT Codes: ANESTH NOSE/SINUS SURGERY - 70280 ([id number]) P3 - PATIENT W/SEVERE SYS DISEASE, QK - TUBE WINDER HAND 2-4 CNCRNT ANES PROC, QX - TOBACCO WEIGHER SVC W/ MD MED DIRECTION
--- NOTE | 2025-01-15 11:29 | W.ANESCHARGE ---
Anesthesia Charges Start Date/Time Anesthesia Start Date: 01/15/25 Anesthesia Start Time: 10:37 Stop Date/Time Anesthesia Stop Date: 01/15/25 Anesthesia Stop Time: 11:25 Coding CPT Codes CPT Codes: ANESTH NOSE/SINUS SURGERY - 21761 ([id number]) P3 - PATIENT W/SEVERE SYS DISEASE, QK - PRODUCT CONSULTANT 2-4 CNCRNT ANES PROC, QX - BOX PRESS OPERATOR SVC W/ MD MED DIRECTION
[2025-01-15] MEDS: fentaNYL 100 MCG/2 ML inj 50 MCG IVP (11:38)
--- NOTE | 2025-01-15 12:01 | SUR.PHASEI ---
patient met discharge criteria per anesthesia
[2025-01-15] MEDS: PROCHLORPERAZINE 5 MG/ML VIAL IV ×3 (13:20→23:02)
[2025-01-15] MEDS: ACETAMINOPHEN 325 MG TABLET PO ×2 (16:19→20:12)
[2025-01-15] MEDS: lisinopriL 10 MG TABLET 20 MG PO (18:14)
[2025-01-15] MEDS: HYDRALAZINE HCL 20 MG/ML inj 10 MG IVP (18:14)
--- NOTE | 2025-01-15 18:46 | PC.NURSE ---
Pt doing well. He was hypertensive post-op, see MD orders. Intermittent nausea and vomiting has subsided. Pt sating well on room air at this time. Pain is mildly controlled with ice and tylenol, pt is not interested in taking narcotics at this time. Pt is ambulating in room independently, voiding without problems and tolerated supper. Gauze under nose has been changed twice d/t small amount of bloody drainage. Pt is alert and resting well at this time.
[2025-01-15] MEDS: IBUPROFEN 200 MG TABLET PO (20:12)
[2025-01-15] MEDS: 0.9 % SODIUM CHLORIDE 1000 ml 1,000 ML 100 ML IV (22:33)
[2025-01-16] MEDS: IBUPROFEN 200 MG TABLET PO ×2 (00:17→06:35)
[2025-01-16] MEDS: ACETAMINOPHEN 325 MG TABLET PO ×2 (00:18→06:36)
[2025-01-16 03:23] VITALS: BP 142/92; PULSE 95; RESP 18; TEMP 36.8; O2SAT 95
--- NOTE | 2025-01-16 06:52 | PC.NURSE ---
[id number]: Patient pleasant and cooperative. Rates pain /10. PRN Tylenol and Ibuprofen for relief. Changed gauze under nose x2. Nauseated with emesis at beginning of shift. PRN Compazine administered for relief. Patient slow to transition to regular diet but acknowledges feeling much better this am. O2>90% RA. Afebrile. Independent.
[2025-01-16 07:00] VITALS: PULSE 90; RESP 18; O2SAT 95; O2SAT 96
[2025-01-16 08:20] VITALS: BP 184/117; PULSE 90; RESP 18; TEMP 36.7; O2SAT 96
--- NOTE | 2025-01-16 10:46 | PC.NURSE ---
Pt doing well this morning. Pain is tolerable at a 3/10. Nausea and vomiting have subsided. Tolerated breakfast well and ambulating in room okay. is at bedside. Pt belongings and discharge instructions signed. Education reviewed, no questions or concerns at this time. Pt discharged home via at 1030.
== END 2025-01-16 10:30 | disposition home or self-care (01) ==
LOC: OR 09:44 → MEDSURG 09:45
PROVIDERS: PCP Family Medicine; Visit Provider Otolaryngology
PROC: (CPT 30520; principal; 2025-01-15 10:45)
DX: J34.2 Deviated nasal septum (principal); J34.3 Hypertrophy of nasal turbinates; J34.89 Other specified disorders of nose and nasal sinuses
CPT/HCPCS: 30520; 30140; 00160; A9270; J0330; J0360; J0780; J2250; J2704; J3010; J3490; J7030; J7120